=== PATIENT | male | born 1985 | race Caucasian/White ===

== ENCOUNTER 2023-05-30 09:13 | Outpatient (CLI) | payer BC | END 2023-05-30 09:14 | disposition home or self-care (01) | LOC: BICRAD 09:13 | PROVIDERS: ATTEND Family Medicine | DX: M54.2 Cervicalgia (principal); M54.6 Pain in thoracic spine; M41.35 Thoracogenic scoliosis, thoracolumbar region; M41.34 Thoracogenic scoliosis, thoracic region; M41.86 Other forms of scoliosis, lumbar region | CPT/HCPCS: 72040; 72072 ==

== ENCOUNTER 2023-06-20 07:26 | Outpatient (CLI) | payer BC | END 2023-06-20 07:27 | disposition home or self-care (01) | LOC: SCSMRI 07:26 | PROVIDERS: ATTEND Family Medicine | DX: M41.9 Scoliosis, unspecified (principal); M54.6 Pain in thoracic spine; M51.24 Other intervertebral disc displacement, thoracic region; G95.89 Other specified diseases of spinal cord | CPT/HCPCS: 72146 ==